=== PATIENT | female | born 1945 | race Hispanic/Latino ===

== ENCOUNTER 2024-06-15 00:14 | Emergency (ER) | payer OTHER ==
[~2024-06-15] VITALS: Ht 152.4 cm; Wt 77.1 kg
[~2024-06-15 00:14] MED LIST: AMLO-258 PO; ASPI-1005 PO; ATOR40TA69 PO; TRAM50TA4 PO
[2024-06-15] MEDS: 0.9%NACL 1000ML 1,000 ML IV ONE (00:47)
[2024-06-15] MEDS: PANTOPrazole 40 MG/VIAL IVP ONE (00:47)
[2024-06-15] MEDS: ondanSETRON 4MG INJ IVP ONE (00:47)
[2024-06-15 01:40] LABS: BASOPHILS # (AUTO) 0.06 K/uL (0.00-0.20); BASOPHILS % (AUTO) 0.6 % (0.0-5.0); EOSINOPHILS # (AUTO) 0.03 K/uL (0.00-0.70); EOSINOPHILS % (AUTO) 0.3 % (0.0-8.0); HEMATOCRIT 37.9 % (36-48); IMMATURE GRANULOCYTE ABSOLUTE 0.05 K/uL (0-1); LYMPHOCYTES # (AUTO) 1.5 K/uL (1.0-4.8); LYMPHOCYTES % (AUTO) 13.9 % (21.0-51.0); MEAN CORPUSCULAR HEMOGLOBIN 32.2 pg (27.0-33.0); MEAN CORPUSCULAR HGB CONC 35.6 g/dL (32.0-36.0); MEAN CORPUSCULAR VOLUME 90.5 fL (79-99); MONOCYTES # (AUTO) 0.4 K/uL (0.1-1.0); NEUTROPHILS # (AUTO) 8.8 K/uL (1.8-7.7); NEUTROPHILS % (AUTO) 80.7 % (40.0-77.0); PLATELET COUNT (AUTO) 282 K/uL (130-400); RED BLOOD CELL COUNT(AUTO) 4.19 MIL/uL (4.00-5.50); RED CELL DISTRIBUTION WIDTH 12.7 % (11.0-15.5); WHITE BLOOD COUNT (AUTO) 10.9 K/uL (4.8-10.8)
--- NOTE | 2024-06-15 01:43 | ERN ---
General Chief Complaint: Abdominal Pain Stated Complaint: C/O LOWER ABD PAIN WITH N X V ONSET TONIGHT Time Seen by MD: 00:22 Source: patient History of Present Illness Initial Comments 79-year-old female in with lower abdominal pain. Per patient pain began earlier tonight. Patient also presents with nauseousness and vomiting no diarrhea. Daughter at bedside states that she has had something similar like this in the past in his diagnosed with a "stomach infection." Allergies: Coded Allergies: No Known Allergies (Unverified Allergy, Unknown, 01/31/24) Home Meds Active Scripts Atorvastatin Calcium (LIPITOR) 40 Mg Tablet, 40 MG PO HS, #60 TAB Prov:DANE OVALLES PROCESS ENGINEERING INTERN 02/04/24 Aspirin (ASPIRIN 81MG CHEW TAB) 81 Mg Tab.chew, 81 MG PO DAILY, #60 TAB.CHEW Prov:DANE OVALLES PROCESS ENGINEERING INTERN 02/04/24 Tramadol Hcl (Tramadol HCl) 50 Mg Tablet, 50 MG PO Q6H for 3 Days, #12 TAB Prov:LANDY COLEMAN MD 02/01/24 Reported Medications Amlodipine Besylate (Amlodipine Besylate) 10 Mg Tablet, 10 MG PO DAILY for 30 Days, #30 TAB 0 Refills 02/01/24 Past Medical History Past Medical History: High Cholesterol, Hypertension, Other Medical History Other: HX OF GASTRITIS Past Surgical History: None Surgical History Other: BACK ROS Dictation CONSTITUTIONAL: No chills, no fever, no weakness, no diaphoresis, no malaise. HEAD/FACE: No signs of trauma. EENT: No eye pain, no blurred vision, no tearing, no double vision, no ear p ain, no ear discharge, no nose pain, no nasal congestion, no throat pain, no throat swelling, no mouth pain. RESPIRATORY: No cough, no orthopnea, no SOB, no stridor, no wheezing. CARDIOVASCULAR: No chest pain, no edema, no palpitations, no syncope. GASTROINTESTINAL/ABDOMINAL: No abdominal pain, no constipation, no diarrhea, no nausea, no vomiting. GENITOURINARY: No abnormal discharge, no dysuria, no frequent urination, no hematuria. No complaints of pain in the genitals. MUSCULOSKELETAL: No back pain, no gout, no joint pain, no joint swelling, no muscle pain, no muscle stiffness, no neck pain. INTEGUMENTARY: No change in color, no change in hair/nails, no dryness, no lesion, no lumps, no rash. NEUROLOGICAL/PSYCH: No anxiety, not depressed, no emotional problem, no headache, no numbness, no pre-existing deficit, no history of seizures, no tremors, no weakness. HEMATOLOGIC/LYMPHATIC: Not anemic, no history of blood clots, no apparent bleeding, no bruising, glands not swollen. All Systems Negative, Except as Noted. Physical Exam Physical Exam Dictation VITAL SIGNS: Reviewed. GENERAL APPEARANCE: Alert, oriented x3, no acute distress, obese. HEAD AND FACE: Non-traumatic. EYES: PERRL, pink conjunctivas, eyelid no trauma, anterior chamber clear. EARS: Pinnas intact and no signs of trauma or erythema. Ear canals clear and no discharge. TMs no erythema. NOSE: No discharge, no bleeding. OROPHARYNX: Mouth normal, teeth no caries, tongue pink. Pharynx clear, no erythema. Tonsils no exudates, no abscesses noted. Mucous membrane moist. NECK: Supple, non-tender, no thyromegaly, no masses, no JVD, no bruits. BREAST: Deferred. CHEST: No tenderness, no crepitus, no paradoxical movement, no retractions. LUNGS: Clear, well-ventilated, symmetric, no rales, no wheezing, no rhonchi, no stridor, good breath sounds bilaterally. HEART: Regular rate, regular rhythm, no murmur, no gallops. VASCULAR: No peripheral edema. ABDOMEN: Soft, positive bowel sounds, nondistended, no guarding, nontender, no rebound, no masses no hepatomegaly, no splenomegaly, no Harden's sign, no hernias. RECTAL: Deferred. GENITAL: Deferred. NEUROLOGICAL: Normal speech, gross motor function intact, gross sensory function intact. MUSCULOSKELETAL: Neck nontender, full range of motion, back nontender, full range of motion. EXTREMITIES: Nontender, full range of motion. SKIN: Color pink, dry, no turgor, no rash, no lacerations, no abrasions, no contusions. LYMPHATICS: Deferred. Results Laboratory and Microbiology Lab and Micro Result Laboratory Tests Test 06/15/24 01:34 06/15/24 01:57 White Blood Count 10.9 K/uL (4.8-10.8) H Red Blood Count 4.19 MIL/uL (4.00-5.50) Hemoglobin 13.5 g/dL (12.0-16.0) Hematocrit 37.9 % (36-48) Mean Corpuscular Volume 90.5 fL (79-99) Mean Corpuscular Hemoglobin 32.2 pg (27.0-33.0) Mean Corpuscular Hemoglobin Concent 35.6 g/dL (32.0-36.0) Red Cell Distribution Width 12.7 % (11.0-15.5) Platelet Count 282 K/uL (130-400) Mean Platelet Volume 10.1 fL (7.5-10.5) Immature Granulocyte % (Auto) 0.5 % (0-1) Neutrophils (%) (Auto) 80.7 % (40.0-77.0) H Lymphocytes (%) (Auto) 13.9 % (21.0-51.0) L Monocytes (%) (Auto) 4.0 % (3.0-13.0) Eosinophils (%) (Auto) 0.3 % (0.0-8.0) Basophils (%) (Auto) 0.6 % (0.0-5.0) Neutrophils # (Auto) 8.8 K/uL (1.8-7.7) H Lymphocytes # (Auto) 1.5 K/uL (1.0-4.8) Monocytes # (Auto) 0.4 K/uL (0.1-1.0) Eosinophils # (Auto) 0.03 K/uL (0.00-0.70) Basophils # (Auto) 0.06 K/uL (0.00-0.20) Absolute Immature Granulocyte (auto 0.05 K/uL (0-1) Nucleated Red Blood Cells 0.0 % (0.0-0.19) Sodium Level 145 mmol/L (136-145) Potassium Level 2.9 mmol/L (3.5-5.1) *L Chloride Level 107 mmol/L (101-111) Carbon Dioxide Level 22 mmol/L (21-32) Blood Urea Nitrogen 13 mg/dL (7-18) Creatinine 0.9 mg/dL (0.5-1.0) Glomerular Filtration Rate Calc 65 mL/min (>90) Random Glucose 133 mg/dL (70-105) H Total Calcium 8.5 mg/dL (8.5-10.1) Magnesium Level 1.80 mg/dL (1.80-2.40) Total Bilirubin 0.6 mg/dL (0.2-1.0) Aspartate Amino Transf (AST/SGOT) 13 U/L (10-37) Alanine Aminotransferase (ALT/SGPT) 19 U/L (12-78) Alkaline Phosphatase 103 U/L (50-136) Total Creatine Kinase 44 U/L (21-232) Troponin I High Sensitivity 7 ng/L (4-50) Total Protein 7.0 g/dL (6.0-8.3) Albumin 3.4 g/dL (3.5-5.0) L Lipase 27 U/L (16-77) Urine Color LIGHT-YELLOW (YELLOW) Urine Appearance CLEAR (CLEAR) Urine pH 7.0 (5.0-8.0) Urine Specific [place] 1.009 (1.001-1.031) Urine Protein NEGATIVE mg/dL (NEGATIVE) Urine Glucose (UA) NEGATIVE mg/dL (NEGATIVE) Urine Ketones 10 mg/dL (NEGATIVE) H Urine Occult Blood NEGATIVE (NEGATIVE) Urine Nitrate NEGATIVE (NEGATIVE) Urine Bilirubin NEGATIVE mg/dL (NEGATIVE) Urine Urobilinogen 0.2 mg/dL (0.2-1.0) Urine Leukocyte Esterase NEGATIVE Vincent/uL Urine RBC None /HPF (0-1) Urine WBC 2-5 /HPF (0-1) H Urine Squamous Epithelial Cells RARE /HPF (0-2) Urine Bacteria RARE /HPF (None Seen) Labs Reviewed?: Yes EKG/XRAY/US/CT/MRI EKG Comment 06/15/2024 time 12:54 a.m. Ventricular rate 68 Sinus rhythm [place] [address] wave elevation or depression MDM MDM: DIFFERENTIAL DIAGNOSIS: GASTROENTERITIS, VIRAL GASTROENTERITIS, HYPOKALEMIA, BOWEL OBSTRUCTION, NSTEMI, TONSILLAR OTITIS PATIENT IS A 79-YEAR-OLD FEMALE COMING IN TO BE EVALUATED FOR ABDOMINAL DISCOMFORT AND DIARRHEA. PER FAMILY MEMBER AT BEDSIDE PATIENT HAS A SIMILAR SYMPTOMS LIKE THIS IN THE PAST. PATIENT WAS DIAGNOSED IN THE LAST VISIT HAS A VIRAL GASTROENTERITIS. PATIENT DID PRESENT WITH LOW POTASSIUM WHICH WAS REPLACED. PATIENT WAS REPLACED WITH IV POTASSIUM AND ORAL POTASSIUM WHICH SHE TOLERATED WELL. P.O. CHALLENGE PASSED. PATIENT WILL BE DISCHARGED WITH A DIAGNOSIS OF VIRAL GASTROENTERITIS. I ADVISED HER APPROPRIATE FOLLOW UP WITH PCP IN 1-2 DAYS. I ALSO ADVISED HER DIET MODIFICATION TO HELP WITH SYMPTOMS OF GASTROENTERITIS. ED Course Orders Procedure Category Date Status Time Cbc With Differential LAB 06/15/24 Complete 00:33 Comprehensive LAB 06/15/24 Complete Metabolic Panel 00:33 Troponin I High LAB 06/15/24 Complete Sensitivity 00:33 Urinalysis Profile LAB 06/15/24 Complete 00:33 12 Lead Ekg Tracing- EKG 06/15/24 Logged Technical 00:33 0.9%Nacl 1000ml (Ns PHA 06/15/24 Complete 1000ml) 01:00 Ondansetron 4mg Inj PHA 06/15/24 Complete (Zofran 4mg Inj) 01:00 Pantoprazole 40mg Inj PHA 06/15/24 Complete (Protonix 40mg Inj 01:00 Creatine Kinase, Total LAB 06/15/24 Complete 00:33 Chest 1vw RAD 06/15/24 Taken 00:33 Lipase LAB 06/15/24 Complete 00:33 Magnesium LAB 06/15/24 Complete 02:08 Potassium Chloride PHA 06/15/24 In Process 10meq/100ml (Potassiu 02:30 Potassium Bicarb/Cit PHA 06/15/24 Complete Ac 25meq (K-Lyte Ta 02:30 Current Medications Medications (Trade) Dose Ordered Sig/Christa Route PRN Reason Start Time Stop Time Status Last Admin Dose Admin Ondansetron HCl (zoFRAN 4MG INJ) 4 mg ONCE ONCE IVP 06/15/24 01:00 06/15/24 01:01 DC 06/15/24 00:47 Pantoprazole Sodium (PROTonix 40MG INJ) 40 mg ONCE ONCE IVP 06/15/24 01:00 06/15/24 01:01 DC 06/15/24 00:47 Potassium Bicarbonate (K-Lyte Tablet Eff 25 Meq Tablet.eff) 50 meq ONCE ONCE PO 06/15/24 02:30 06/15/24 02:31 DC 06/15/24 02:16 Potassium Chloride 100 ml @ 100 mls/hr ONCE ONCE IV 06/15/24 02:30 06/15/24 03:29 06/15/24 02:16 Sodium Chloride 1,000 ml @ 0 mls/hr ONCE ONCE IV 06/15/24 01:00 06/15/24 01:01 DC 06/15/24 00:47 Vital Signs Date Time Temp Pulse Resp B/P (MAP) Pulse Ox O2 Delivery O2 Flow Rate FiO2 06/15/24 00:58 99.0 77 18 169/77 99 Room Air* 0 21 06/15/24 00:19 98.2 73 20 175/73 99 Room Air DX & DISP Disposition: Discharge Departure Impression: Primary Impression: Viral gastroenteritis Additional Impression: Hypokalemia Condition: Stable Scripts Potassium Chloride (K-Dur/Klor-Con) 10 Meq Ertab 1 TAB PO DAILY for 10 Days, #20 TAB 0 Refills Prov: FLACA HAINES MD 06/15/24 Lactobacillus Acidophilus (Acidophilus Lactobacilli) 500 Million Cell Capsule 1 CAP PO BID for 10 Days, #20 CAP 0 Refills Prov: FLACA HAINES MD 06/15/24 Pantoprazole Sodium (Protonix) 40 Mg Ectab 1 TAB PO DAILY for 30 Days, #30 TAB 0 Refills Prov: FLACA HAINES MD 06/15/24 Additional Instructions: FOLLOW-UP WITH PRIMARY CARE PROVIDER IN 1 TO 2 DAYS. TAKE MEDICATIONS DIRECTED HERE IN THE EMERGENCY ROOM. OKAY TO CONTINUE HOME MEDICATIONS UNLESS OTHERWISE DISCUSSED DURING YOUR VISIT IN THE EMERGENCY ROOM TODAY. RETURN TO YOUR NEAREST EMERGENCY ROOM IF SYMPTOMS WORSEN OR IF THERE IS NO IMPROVEMENT. CALL 911 IF YOU NEED IMMEDIATE ASSISTANCE. TAKE TYLENOL [id number] NEEDED AND IF NO CONTRAINDICATIONS ARE PRESENT. INCREASE ORAL HYDRATION. A WOUND CULTURE OR URINE CULTURE WAS ORDERED HERE IN THE EMERGENCY ROOM DEPARTMENT PLEASE FOLLOW-UP WITH PRIMARY CARE PROVIDER AND ADVISE THEM TO GET REPEAT PORTS FROM OUR FACILITY. IF YOU HAD ANY ERINN WRAP/SPLINTS THAT WERE APPLIED HERE, PLEASE DO NOT REMOVE THEM UNTIL YOU SEE YOUR PRIMARY CARE OR SPECIALTY. REFERRALS: Referrals: SELF,REFERRAL (PCP) MERLIN GUTIERREZ MD Time of Disposition: 02:46 FLACA HAINES MD Jun 15, 2024 01:43
[2024-06-15 02:02] LABS: ALBUMIN 3.4 g/dL (3.5-5.0); BILIRUBIN,TOTAL 0.6 mg/dL (0.2-1.0); CREATININE 0.9 mg/dL (0.5-1.0)
[2024-06-15 02:06] LABS: POTASSIUM 2.9 mmol/L (3.5-5.1)
[2024-06-15 02:11] LABS: APPEARANCE,URINE CLEAR (CLEAR); BILIRUBIN,URINE NEGATIVE (NEGATIVE); COLOR,URINE LIGHT-YELLOW (YELLOW); GLUCOSE, URINE (UA) NEGATIVE (NEGATIVE); KETONES,URINE 10 mg/dL (NEGATIVE); LEUKOCYTE ESTERASE ,URINE NEGATIVE Leu/uL (NEGATIVE); NITRATE,URINE NEGATIVE (NEGATIVE); OCCULT BLOOD,URINE NEGATIVE (NEGATIVE); PROTEIN,URINE NEGATIVE (NEGATIVE); UROBILINOGEN,URINE 0.2 mg/dL (0.2-1.0)
[2024-06-15 02:16] LABS: ADD UA MICROSCOPIC YES
[2024-06-15] MEDS: PoTASSium BIcarbonate/CIT AC 25 MEQ TABLET.EFF PO ONE (02:16)
[2024-06-15] MEDS: PoTASSium chloRIDE 10MEQ/100ML 100 ML IV ONE (02:16)
[2024-06-15 02:17] LABS: BACTERIA,URINE RARE /HPF (None Seen); MUCUS,URINE RARE LPF (None Seen); SQUAMOUS EPITHELIAL CELL,UR RARE /HPF (0-2)
[2024-06-15] MEDS ORDERED: LACT1CAP90 PO (02:47)
[2024-06-15] MEDS ORDERED: PANT40TA55 PO (02:47)
[2024-06-15] MEDS ORDERED: POTA-187 PO (02:48)
[2024-06-15 02:51] VITALS: BP 155/65; PULSE 80; RESP 18; TEMP 99.2; O2SAT 99
--- NOTE | 2024-06-15 07:49 | EKG ---
[facility] Test Date: 2024-06-15 Test Time: 00:54:06 Pat Name: SHELLEY HENDRIX Department: ED Room: Gender: F Veterinarian Small Animal: [id number] : 1945 Requested By: FLACA HAINES Order Number: [id number] Reading MD: Leonid Tran Measurements Intervals [place] Rate: 68 P: 17 PA: 170 QRS: 31 QRSD: 82 T: 57 QT: 444 QTc: 473 Interpretive Statements Sinus rhythm Compared to ECG 02/01/2024 07:33:44 No significant changes Electronically Signed On 06-15-2024 15:45:22 DISTILLERY WORKER by Leonid Tran Please click the below link to view image of tracing.
--- NOTE | 2024-06-15 08:55 | HMCIMG ---
CHEST 1VW REASON: cp COMPARISON: None. FINDINGS: Single view of the chest was obtained. Lungs are clear. Heart size is normal. There is no pulmonary vascular congestion. Mediastinum and bony thorax appear unremarkable. IMPRESSION: 1. Normal single view chest x-ray.
== END 2024-06-15 02:57 | disposition home or self-care (01) ==
LOC: EDH 00:14
DX: A08.4 Viral intestinal infection, unspecified (principal); E87.6 Hypokalemia; I10 Essential (primary) hypertension; E78.00 Pure hypercholesterolemia, unspecified; Z79.82 Long term (current) use of aspirin; Z87.19 Personal history of other diseases of the digestive system; Z79.899 Other long term (current) drug therapy
CPT/HCPCS: 99284; 96365; 71045; 96361; 96375 ×2; 82550; 83735; 84484; 80053; 83690; 85025; 81001; 36415; 93005; J7030; J2405; J2470; J3480